=== PATIENT | male | born 1980 | race Caucasian/White ===

== ENCOUNTER 2018-05-30 12:24 | Day surgery (SDC) | payer BC ==
[2018-05-30] MEDS ORDERED: LIDOCAINE 100 MG SYRINGE (14:19)
[2018-05-30] MEDS ORDERED: PROPOFOL 40 ML (14:19)
== END 2018-05-30 15:11 | disposition home or self-care (01) ==
LOC: GIL 12:24
DX: K29.50 Unspecified chronic gastritis without bleeding (principal); K20.9 Esophagitis, unspecified
CPT/HCPCS: 43239; 88305; 88312